=== PATIENT | female | born 2000 | race African-American/Black ===

== ENCOUNTER 2024-11-29 06:24 | Emergency (ER) | payer OTHER ==
[2024-11-29 06:28] VITALS: RESP 18
--- NOTE | 2024-11-29 06:51 | ED ---
Lower Extremity Injury HPI - General Chief Complaint: Extremity Injury, Lower Stated Complaint: ankle injury Time Seen by Provider: 11/29/24 06:30 Source: patient, RN notes reviewed Mode of arrival: ambulatory Limitations: no limitations - History of Present Illness Initial Comments: 24-year-old female presented the ER for evaluation of left ankle injury. Patient states yesterday she was consuming alcohol and believes she tripped down some stairs. Patient is reporting pain over her left ankle lateral malleolus along with swelling. Patient states pain is worse with ambulating but she is able to bear weight. She is currently rating her pain a 5 out of 10 sharp pain she denies any paresthesias or other injuries. She has not taken anything for pain at this time. Denies actually falling or head injury - Related Data Allergies Allergy/AdvReac Type Severity Reaction Status Date / Time No Known Allergies Allergy Verified 11/29/24 06:27 Review of Systems ROS Statement: Those systems with pertinent positive or pertinent negative responses have been documented in the HPI. ROS Other: All systems not noted in ROS Statement are negative. Past Medical History Past Medical History: No Reported History History of Any Multi-Drug Resistant Organisms: None Reported Past Surgical History: No Surgical Hx Reported Past Psychological History: No Psychological Hx Reported Smoking Status: Current every day smoker Past Alcohol Use History: Occasional Past Drug Use History: None Reported General Exam Limitations: no limitations General appearance: alert, in no apparent distress Respiratory exam: Present: normal lung sounds bilaterally. Absent: respiratory distress, wheezes, rales, rhonchi, stridor Cardiovascular Exam: Present: regular rate, normal rhythm, normal heart sounds. Absent: systolic murmur, diastolic murmur, rubs, gallop, clicks Extremities exam: Present: full ROM, tenderness (And edema to left ankle lateral malleolus.), normal capillary refill (2+ left DP pulse) Neurological exam: Present: alert, oriented X3, CN II-XII intact Skin exam: Present: warm, dry, intact, normal color. Absent: rash Course Vital Signs 11/29/24 06:25 Temperature 97.9 F Pulse Rate 91 Respiratory 18 Rate Blood Pressure 129/87 O2 Sat by Pulse 98 Oximetry Medical Decision Making - Medical Decision Making Was pt. sent in by a medical professional or institution (, PA, [employer], urgent care, hospital, or prison...) When possible be specific @ -No Did you speak to anyone other than the patient for history (EMS, parent, family, police, friend...)? What history was obtained from this source @ -No Did you review nursing and triage notes (agree or disagree)? Why? @ -I reviewed and agree with nursing and triage notes Were old charts reviewed (outside hosp., previous admission, EMS record, old EKG, old radiological studies, urgent care reports/EKG's, prison records)? Report findings @ -No old charts were reviewed Differential Diagnosis (chest pain, altered mental status, abdominal pain women, abdominal pain men, vaginal bleeding, weakness, fever, dyspnea, syncope, headache, dizziness, GI bleed, back pain, seizure, CVA, palpatations, mental health, musculoskeletal)? @ -Differential Musculoskeletal: Muscular strain, contusion, ligament sprain, fracture, arthritis, septic arthritis, bursitis, cellulitis, muscle spasm, nerve compression, DVT, arterial occlusion, herpes zoster, electrolyte abnormality, tumor.... This is not meant to be in all inclusive list EKG interpreted by me (3pts min.). @ -None done X-rays interpreted by me (1pt min.). @ -Left ankle and foot x-ray interpreted by me negative for acute fractures or dislocations CT interpreted by me (1pt min.). @ -None done U/S interpreted by me (1pt. min.). @ -None done What testing was considered but not performed or refused? (CT, X-rays, U/S, labs)? Why? @ -None What meds were considered but not given or refused? Why? @ -Patient refused oral analgesic medications Did you discuss the management of the patient with other professionals (professionals i.e. , PA, [employer], lab, RT, psych nurse, manager social responsibility, high raw sugar boiler, teacher, records officer, returned case inspector)? Give summary @ -No Was smoking cessation discussed for >3mins.? @ -No Was critical care preformed (if so, how long)? @ -No Were there social determinants of health that impacted care today? How? (Homelessness, low income, unemployed, alcoholism, drug addiction, transportation, low edu. Level, literacy, decrease access to med. care, usp, rehab)? @ -No Was there de-escalation of care discussed even if they declined (Discuss DNR or withdrawal of care, Hospice)? DNR status @ -No What co-morbidities impacted this encounter? (DM, HTN, Smoking, COPD, CAD, Cancer, CVA, ARF, Chemo, Hep., AIDS, mental health diagnosis, sleep apnea, morbid obesity)? @ -None Was patient admitted / discharged? Hospital course, mention meds given and route, prescriptions, significant lab abnormalities, going to OR and other pertinent info. @ -Discharge. 24-year-old female presented to ER for evaluation of left ankle injury. Vital signs stable. Patient is neurovascularly intact. There is ten derness edema noted to left ankle lateral malleolus. Patient has full active range of motion. No overlying skin changes. Patient observed ambulating without difficulty in emergency department. X-rays obtained negative for acute fractures or dislocations. Patient provided with ice pack for pain control, as she refused oral analgesic medications. Upon reevaluation patient resting comfortably in exam room no signs of acute distress. Patient educated on x-ray findings. Pain/injury believed to be soft tissue in nature. Conservative treatment options discussed. Patient discharged with Viraj wrap for support. Return parameters discussed. Patient discharged stable condition with follow-up to PCP. Patient verbally expressed understanding agree with care plan. Case discussed with ED attending Dr. Cagle Undiagnosed new problem with uncertain prognosis? @ -No Drug Therapy requiring intensive monitoring for toxicity (Heparin, Nitro, Insulin, Cardizem)? @ -No Were any procedures done? @ -No Diagnosis/symptom? @ -Ankle sprain Acute, or Chronic, or Acute on Chronic? @ -Acute Uncomplicated (without systemic symptoms) or Complicated (systemic symptoms)? @ -Uncomplicated Side effects of treatment? @ -No Exacerbation, Progression, or Severe Exacerbation? @ -No Poses a threat to life or bodily function? How? (Chest pain, [place], NH, pneumonia, PE, COPD, DKA, ARF, appy, cholecystitis, CVA, Diverticulitis, Homicidal, Suicidal, threat to staff... and all critical care pts) @ -No - Radiology Data Radiology results: report reviewed, image reviewed Disposition Clinical Impression: Ankle sprain Disposition: HOME SELF-CARE Condition: Stable Instructions (If sedation given, give patient instructions): Ankle Sprain (ED) Additional Instructions: Continue to rest ice and elevate. You may also use compression to aid with support and pain. You may take [id number] ibuprofen and Tylenol for pain control. Follow-up closely with PCP. Return to the ER for any new or worsening concerns. Is patient prescribed a controlled substance at d/c from ED?: No Referrals: None,Stated [Primary Care Provider] - 1-2 days Time of Disposition: 07:08
--- NOTE | 2024-11-29 06:57 | XR ---
EXAMINATION TYPE: XR ankle complete LT, XR foot complete LT DATE OF EXAM: 11/29/2024 CLINICAL INDICATION: Female, 24 years old with history of injury, pain TECHNIQUE: Frontal, lateral and oblique images of the left ankle are obtained. COMPARISON: None. FINDINGS: There is no acute fracture/dislocation evident in the left ankle or foot. The ankle morti se appears within normal limits. Joint spaces in left foot are preserved. The overlying soft tissue a ppears unremarkable. IMPRESSION: There is no acute fracture or dislocation in the left ankle or foot. [facility], , 11/29/2024 6:54 AM
[2024-11-29 07:40] VITALS: BP 136/80; PULSE 86; TEMP 98
== END 2024-11-29 07:40 | disposition home or self-care (01) ==
LOC: EC 06:24
DX: S93.402A Sprain of unspecified ligament of left ankle, initial encounter (principal); F17.200 Nicotine dependence, unspecified, uncomplicated; W18.43XA Slipping, tripping and stumbling without falling due to stepping from one level to another, initial encounter
CPT/HCPCS: 99283